=== PATIENT | male | born 1980 | race Caucasian/White ===

== ENCOUNTER 2017-02-02 17:10 | Inpatient (IN) | payer MEDICAID, OTHER ==
[~2017-02-02] VITALS: Ht 170.2 cm; Wt 96.2 kg
--- NOTE | 2017-02-02 17:58 | NUR ---
DR MCGEE AT THE BEDSIDE FOR EVAL AND EXAM.
[2017-02-02] MEDS ORDERED: IV NORMAL SALINE 500 ML BAG IV ONE (18:00)
[2017-02-02 18:15] LABS: BASOPHILS # (AUTO) 0.1 K/uL (0.0-8.0); BASOPHILS % (AUTO) 0.7 % (0.0-2.0); EOSINOPHILS # (AUTO) 0.2 K/uL (0.0-0.7); EOSINOPHILS % (AUTO) 1.6 % (0.0-7.0); HEMATOCRIT 44.9 % (40-50); HEMOGLOBIN 14.3 G/DL (14.0-18.0); LYMPHOCYTES # (AUTO) 3.2 K/UL (0.8-4.8); LYMPHOCYTES % (AUTO) 25.1 % (20.5-51.5); MEAN CORPUSCULAR HEMOGLOBIN 25.2 UUG (27.0-31.0); MEAN CORPUSCULAR HGB CONC 32 g/dL (32.0-37.0); MEAN CORPUSCULAR VOLUME 78.9 FL (82.0-92.0); MONOCYTES # (AUTO) 1.1 K/UL (0.1-1.30); MONOCYTES % (AUTO) 9.1 % (0.0-11.0); NEUTROPHILS % (AUTO) 63.5 % (38.5-71.5); PLATELET COUNT (AUTO) 257 K/UL (150-450); RED BLOOD CELL COUNT(AUTO) 5.69 MIL/UL (4.7-6.1); WHITE BLOOD COUNT (AUTO) 12.6 K/UL (4.0-11.2)
[2017-02-02 18:26] LABS: CREATININE 1.1 mg/dL (0.6-1.3); POTASSIUM 4.2 mmol/L (3.5-5.1)
[2017-02-02 18:38] LABS: BILIRUBIN,DIRECT 0.1 mg/dL (0.0-0.2); BILIRUBIN,TOTAL 0.6 mg/dL (0.2-1.0); TOTAL PROTEIN, SERUM 7.5 g/dL (6.4-8.2)
--- NOTE | 2017-02-02 19:04 | NUR ---
BELONGING LIST COMPLETED AND PLACED IN THE CHART. NOT CANDIDATE FOR MRSA.
--- NOTE | 2017-02-02 20:11 | NUR ---
Note sallieone in EDM - 02/02/17 at 2026 by RCISTIN Patient discharged to home in stable conditon. Written and verbal after care instructions given. Patient verbalizes understanding of instructions. IV WAS REMOVED AND PRESSURE DRESSING APPLIED; PT ADVISED TO FOLLOWUP WITH PMD AND TO RETURN TO THE ED IF CONDITION WORSENS; PT ADVISED NOT TO DRIVE; STATES SHE WILL FOLLOW BOYFRIEND(WHO IS BEING ADMITTED) UPSTAIRES. VS WNL. NO COMPLAINTS OF ITCHINESS OR RASH NOTED ON PT.
--- NOTE | 2017-02-02 20:27 | NUR ---
Pt. admitted to [facility] RM [facility] VS STABLE, under care of Dr. SHARMA Belongs List completed.
[2017-02-02 20:50] VITALS: BP 122/78
--- NOTE | 2017-02-02 21:00 | NUR ---
PT BEING ADMITTED TO TELE FROM ED. PT IS A&OX4. RESP IS EVEN AND UNLABORED. NO SOB. PT WITH C/O CHEST PAIN ON THE R CHEST AREA 5/10. GOOD PERIPHERAL PULSES. NO EDEMA.
[2017-02-02] MEDS ORDERED: ZOLPIDEM 5 MG TABLET PO PRN (22:00)
[2017-02-02] MEDS ORDERED: MORPHINE SULFATE 2 MG/1 ML DISP.SYRIN IV PRN (22:00)
[2017-02-02] MEDS ORDERED: MAGNESIUM HYDROXIDE 30 ML LIQUID UDC PO PRN (22:00)
[2017-02-02] MEDS ORDERED: ACETAMINOPHEN 325 MG TABLET PO PRN (22:00)
[2017-02-02] MEDS ORDERED: IBUPROFEN 400 MG TABLET PO PRN (22:00)
[2017-02-02] MEDS ORDERED: ONDANSETRON 4 MG/2 ML VIAL IV PRN (22:00)
[2017-02-02] MEDS ORDERED: IBUPROFEN 400 MG TABLET ONE (22:17)
[2017-02-03 00:29] VITALS: BP 116/79
--- NOTE | 2017-02-03 05:40 | NUR ---
PT IN BED, A&OX4. RESP IS EVEN AND UNLABORED. NO SOB. NO ACUTE DISTRESS. SR ON TELE. DENIES CHEST PAIN. RES WITH BRP, AMBULATING SELF. VSS.
[2017-02-03 05:41] VITALS: BP 119/73
--- NOTE | 2017-02-03 07:10 | NUR ---
PATIENT RECEIVED IN ROOM RESTING ALERT AWAKE IN NO ACUTE DISTRESS. NO C/O PAIN AT THIS TIME. CALL LIGHT AT REACH.
[2017-02-03] MEDS ORDERED: PANTOPRAZOLE SODIUM 40 MG TABLET.DR PO SCH (07:18)
[2017-02-03] MEDS ORDERED: MORPHINE SULFATE 4 MG/1 ML DISP.SYRIN IV PRN (07:20)
[2017-02-03 07:37] LABS: BASOPHILS % (AUTO) 0.2 % (0.0-2.0); EOSINOPHILS # (AUTO) 0.3 K/uL (0.0-0.7); EOSINOPHILS % (AUTO) 2.3 % (0.0-7.0); HEMATOCRIT 44.8 % (40-50); HEMOGLOBIN 14.7 G/DL (14.0-18.0); LYMPHOCYTES # (AUTO) 3.4 K/UL (0.8-4.8); LYMPHOCYTES % (AUTO) 29.2 % (20.5-51.5); MEAN CORPUSCULAR HGB CONC 33 g/dL (32.0-37.0); MEAN CORPUSCULAR VOLUME 79.1 FL (82.0-92.0); MONOCYTES # (AUTO) 0.9 K/UL (0.1-1.30); MONOCYTES % (AUTO) 7.9 % (0.0-11.0); NEUTROPHILS % (AUTO) 60.4 % (38.5-71.5); PLATELET COUNT (AUTO) 230 K/UL (150-450); RED BLOOD CELL COUNT(AUTO) 5.66 MIL/UL (4.7-6.1); WHITE BLOOD COUNT (AUTO) 11.6 K/UL (4.0-11.2)
[2017-02-03 08:23] LABS: CREATININE 1.1 mg/dL (0.6-1.3); PHOSPHOROUS 4.8 mg/dL (2.5-4.9); POTASSIUM 4.1 mmol/L (3.5-5.1)
[2017-02-03 11:27] VITALS: BP 121/78
--- NOTE | 2017-02-03 14:01 | NUR ---
PATIENT C/O PAIN TO LOWER BACK. DETAILED REPORT GIVEN TO DR. SHARMA. SEE NEW ORDERS FOR WARM COMPRESS.
[2017-02-03] MEDS ORDERED: IBUP-1953 PO (15:28)
[2017-02-03 15:42] VITALS: BP 130/85
--- NOTE | 2017-02-03 16:00 | NUR ---
DISCHARGING PATIENT HOME IN A STABLE CONDITION. DENIED CP. VSS. DISCHARGE INSTRUCTIONS PROVIDED. LIST OF BELONGING SIGNED AND ALL WAS TAKEN. IV REMOVED, PRESSURE APPLIED AND HEMOSTASIS ACHIEVED. DRESSING APPLIED. PATIENT LEAVING VIA PRIVATE CAR.
== END 2017-02-03 16:05 | disposition home or self-care (01) | DRG 203 ==
LOC: ER 17:21 → TELE 20:31
PROVIDERS: ADMIT Internal Medicine; ATTEND Internal Medicine
DX: M94.0 Chondrocostal junction syndrome [Tietze] (principal); E66.9 Obesity, unspecified; M46.96 Unspecified inflammatory spondylopathy, lumbar region; M54.10 Radiculopathy, site unspecified; R73.03 Prediabetes; Z68.33 Body mass index [BMI] 33.0-33.9, adult; R71.8 Other abnormality of red blood cells; R78.9 Finding of unspecified substance, not normally found in blood
CPT/HCPCS: 36415; 70030-TC; 71010; 72100; 83735; 84100; 85025; 85730; 86140; 93005; A4663; J7040

== ENCOUNTER 2019-06-01 08:21 | Emergency (ER) | payer OTHER ==
[~2019-06-01] VITALS: Ht 170.2 cm; Wt 113.4 kg
[~2019-06-01 08:21] MED LIST: IBUP-1953 PO
[2019-06-01 08:57] LABS: BASOPHILS % (AUTO) 0.5 % (0.0-2.0); EOSINOPHILS # (AUTO) 0.2 K/uL (0.0-0.7); EOSINOPHILS % (AUTO) 2.6 % (0.0-7.0); HEMATOCRIT 44.1 % (36.7-47.1); HEMOGLOBIN 14.5 g/dL (12.5-16.3); LYMPHOCYTES # (AUTO) 2.3 K/uL (20.0-40.0); LYMPHOCYTES % (AUTO) 27.9 % (20.5-51.5); MEAN CORPUSCULAR HEMOGLOBIN 26.2 uug (23.8-33.4); MEAN CORPUSCULAR HGB CONC 33 g/dL (32.5-36.3); MEAN CORPUSCULAR VOLUME 79.8 fL (73.0-96.2); MONOCYTES # (AUTO) 0.6 K/uL (2.0-10.0); MONOCYTES % (AUTO) 7.7 % (0.0-11.0); NEUTROPHILS % (AUTO) 61.3 % (38.5-71.5); PLATELET COUNT (AUTO) 236 K/uL (152-348); RED BLOOD CELL COUNT(AUTO) 5.52 MIL/uL (4.06-5.63); WHITE BLOOD COUNT (AUTO) 8.2 K/uL (3.6-10.2)
[2019-06-01 09:00] LABS: CREATININE 0.9 mg/dL (0.6-1.3)
[2019-06-01 09:13] LABS: BILIRUBIN,DIRECT 0.1 mg/dL (0.0-0.2); BILIRUBIN,TOTAL 0.5 mg/dL (0.2-1.0); TOTAL PROTEIN, SERUM 7.1 g/dL (6.4-8.2)
--- NOTE | 2019-06-01 12:59 | NUR ---
Patient discharged to home in stable conditon. Written and verbal after care instructions given. Patient verbalizes understanding of instructions.pt walks in steady gait. pt says feels better.
[2019-06-01 13:01] VITALS: BP 129/77
== END 2019-06-01 13:02 | disposition home or self-care (01) ==
LOC: ER 08:21
DX: R07.9 Chest pain, unspecified (principal); F41.9 Anxiety disorder, unspecified; Z79.1 Long term (current) use of non-steroidal anti-inflammatories (NSAID)
CPT/HCPCS: 36415; 70030-TC; 71045; 85025; 93005; A4663